=== PATIENT | male | born 1985 | race African-American/Black ===

== ENCOUNTER 2017-02-26 17:59 | Emergency (ER) | payer SELFPAY ==
--- NOTE | 2017-02-26 18:29 | ER Document Report ---
ED Medical Screen (RME) - General TRAVEL OUTSIDE OF THE [place] IN LAST 30 DAYS: No - General Chief Complaint: Fainting Stated Complaint: HEADACHE, BACK PAIN Time Seen by Provider: 02/26/17 18:11 Notes: Patient is a 31 year old male presenitng to the emergency department for possible syncope, headache, and back pain. Patient states he has hypertension because his girlfriend checked his blood pressure. Patient states he does not take medication for hypertension. Patient states he was going to the grocery store when he passed out on his way to the store. Patient states he was down on the ground for only 2 minutes or less. Patient states no one saw him and he did not have any pain when he came to. Patient states he has never passed out like that in the past. Patient states he also may have gotten too hot today which could be why he passed out. Patient believes his chronic back pain and headaches are what caused him to pass out. Patient denies any chest pain or difficulty breathing. Patient states he did have some wheezing yesterday but he used a humidifier which helped some. Patient denies any numbness or tingling. ( BREANNE ADEN) - Related Data Allergies/Adverse Reactions: seafood Allergy (Severe, Uncoded 02/26/17 18:05) tongue swelling, hives Past Medical History - Social History Chew tobacco use (# tins/day): No Frequency of alcohol use: None Drug Abuse: None Pulmonary Medical History: Reports: Hx Asthma Renal/ Medical History: Denies: Hx Peritoneal Dialysis Surgical Hx: Negative - Immunizations Immunizations up to date: Yes Hx Diphtheria, Pertussis, Tetanus Vaccination: Yes - 2014 History of Influenza Vaccine for 02/2017 - 07/2017 Season: Yes Influenza Administration Date for 02/2017 - 07/2017 Season: 11/19/16 Physical Exam - Vital signs Vitals: Temp Pulse Resp BP Pulse Ox 98.8 F 92 16 135/72 H 99 02/26/17 18:05 02/26/17 18:05 02/26/17 18:05 02/26/17 18:05 02/26/17 18:05 - Notes Notes: GENERAL: Alert, interacts well. No acute distress. HEAD: Normocephalic, atraumatic. LUNGS: Clear to auscultation bilaterally, no wheezes, rales, or rhonchi. No respiratory distress. HEART: Regular rate and rhythm. No murmurs, gallops, or rubs. NEUROLOGICAL: Alert and oriented x3. Normal speech. (BREANNE ADEN) - Vital Signs Vital signs: Temp Pulse Resp BP Pulse Ox 98.8 F 92 16 135/72 H 99 02/26/17 18:05 02/26/17 18:05 02/26/17 18:05 02/26/17 18:05 02/26/17 18:05 Scribe Documentation - Scribe Written by Scribe:: Breanne Aden, Jordyn 02/26/17 18:30 acting as scribe for :: Yasmani
[2017-02-26 18:45] LABS: ABSOLUTE EOSINOPHILS # (AUTO) 0.1 10^3/uL (0.0-0.6); ABSOLUTE LYMPHOCYTES (AUTO) 1.1 10^3/uL (0.5-4.7); ABSOLUTE MONOCYTES (AUTO) 0.8 10^3/uL (0.1-1.4); BASOPHILS % (AUTO) 0.7 % (0-2); HEMATOCRIT 46.1 % (37.9-51.0); HEMOGLOBIN 15.7 g/dL (13.5-17.0); LYMPHOCYTES % (AUTO) 15.3 % (13-45); MEAN CORPUSCULAR VOLUME 88 fl (80-97); MONOCYTES % (AUTO) 11.8 % (3-13); RED BLOOD COUNT 5.22 10^6/uL (4.35-5.55); RED CELL DISTRIBUTION WIDTH 12.5 % (11.5-14.0); SEGMENTED NEUTROPHILS % (AUTO) 71.2 % (42-78)
[2017-02-26 18:59] LABS: ALANINE AMINOTRANSFERASE 26 U/L (21-72); ALBUMIN 4.8 g/dL (3.5-5.0); ALKALINE PHOSPHATASE 69 U/L (38-126); ANION GAP 14 (5-19); ASPARTATE AMINO TRANSFERASE 18 U/L (17-59); BILIRUBIN,DIRECT 0.5 mg/dL (0.0-0.4); BILIRUBIN,TOTAL 1.8 mg/dL (0.2-1.3); BLOOD UREA NITROGEN 11 mg/dL (7-20); CALCIUM 10.6 mg/dL (8.4-10.2); CARBON DIOXIDE 27 mmol/L (22-30); CHLORIDE 102 mmol/L (98-107); CREATININE RESULT 0.95 mg/dL (0.52-1.25); GLUCOSE 56 mg/dL (75-110); POTASSIUM 4.3 mmol/L (3.6-5.0); SODIUM 142.8 mmol/L (137-145); TOTAL PROTEIN 8.3 g/dL (6.3-8.2)
--- NOTE | 2017-02-26 19:57 | ER Document Report ---
ED General - General Chief Complaint: Fainting Stated Complaint: HEADACHE, BACK PAIN Time Seen by Provider: 02/26/17 18:11 Notes: Patient is a 31-year-old male who comes emergency department with chief complaint of a syncopal episode and generally not feeling well. He states he has had headaches, he has had pains in his back, his significant other checked his blood pressure and found it was high, he states his biggest concern is that he passed out earlier and he never has passed out before. Patient states he was walking when the episode happened, he states he feels like he blacked out and went down to the ground, he denies hitting his head or having a headache immediately afterwards. Patient takes no daily medications, denies any surgeries, denies any past medical history other than asthma as a child. When asked he admits that he really has not eaten anything today or yesterday but he did have a DrJalen Guillory earlier. TRAVEL OUTSIDE OF THE [place] IN LAST 30 DAYS: No - Related Data Allergies/Adverse Reactions: seafood Allergy (Severe, Uncoded 02/26/17 18:05) tongue swelling, hives Past Medical History - General Information source: Patient - Social History Smoking Status: Current Every Day Smoker Chew tobacco use (# tins/day): No Frequency of alcohol use: None Drug Abuse: None Lives with: Family Family History: Reviewed & Not Pertinent Pulmonary Medical History: Reports: Hx Asthma Renal/ Medical History: Denies: Hx Peritoneal Dialysis Surgical Hx: Negative - Immunizations Immunizations up to date: Yes Hx Diphtheria, Pertussis, Tetanus Vaccination: Yes - 2014 Review of Systems - Review of Systems Constitutional: See HPI EENT: No symptoms reported Cardiovascular: No symptoms reported Respiratory: No symptoms reported Gastrointestinal: No symptoms reported Genitourinary: No symptoms reported Male Genitourinary: No symptoms reported Musculoskeletal: No symptoms reported Skin: No symptoms reported Hematologic/Lymphatic: No symptoms reported Neurological/Psychological: See HPI Physical Exam - Vital signs Vitals: Temp Pulse Resp BP Pulse Ox 98.8 F 92 16 135/72 H 99 02/26/17 18:05 02/26/17 18:05 02/26/17 18:05 02/26/17 18:05 02/26/17 18:05 Interpretation: Normal - General General appearance: Appears well, Alert In distress: None - HEENT Head: Normocephalic, Atraumatic Eyes: Normal Conjunctiva: Normal Extraocular movements intact: Yes Eyelashes: Normal Pupils: PERRL Nasal: Normal Mouth/Lips: Normal Mucous membranes: Normal Pharynx: Normal Neck: Normal - Respiratory Respiratory status: No respiratory distress Chest status: Nontender Breath sounds: Normal Chest palpation: Normal - Cardiovascular Rhythm: Regular Heart sounds: Normal auscultation Murmur: No - Abdominal Inspection: Normal Distension: No distension Bowel sounds: Normal Tenderness: Nontender. No: Tender, Guarding Organomegaly: No organomegaly - Back Back: Normal, Nontender - Extremities General upper extremity: Normal inspection, Nontender, Normal color, Normal ROM , Normal temperature General lower extremity: Normal inspection, Nontender, Normal color, Normal ROM , Normal temperature, Normal weight bearing. 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 Does appear to have some J- point elevation in a patient who is lean and muscular. CBC unremarkable, CMP shows minimally elevated bilirubin, shows significant hypoglycemia at 56. D- dimer ordered in triage reviewed and negative. After patient given food he has no complaints. He admits that he has not eaten in almost 2 days because he has been "too busy". Discussed the importance of good nourishment and hydration. Discussed primary care follow-up and return precautions. Patient states satisfaction and agreement. - Vital Signs Vital signs: Temp Pulse Resp BP Pulse Ox 98.1 F 92 22 H 117/74 100 02/26/17 21:01 02/26/17 18:05 02/26/17 21:01 02/26/17 21:01 02/26/17 21:01 - Laboratory Result Diagrams: 02/26/17 18:40 02/26/17 18:40 Laboratory results interpreted by me: 02/26/17 02/26/17 18:40 21:25 Glucose 56 L POC Glucose 122 H Calcium 10.6 H Total Bilirubin 1.8 H Direct Bilirubin 0.5 H Total Protein 8.3 H Discharge - Discharge Clinical Impression: Hypoglycemia Syncope Qualifiers: Syncope type: unspecified Qualified Code(s): R55 - Syncope and collapse Condition: Stable Disposition: HOME, SELF-CARE Additional Instructions: Your examination and workup shows hyperglycemia (low blood sugar), this is most likely the cause of your passing out earlier. Please hydrate better and eat regular meals to avoid this. Follow-up with primary care. Return to the emergency department for any concerning symptoms, see additional instructions below. Syncopal Episode Syncope (fainting or near-fainting) can occur from many different health problems. Or it can be a simple fainting spell requiring no treatment. It is safe for you to go home, but further evaluation will likely be necessary. Your work-up may include tests for internal bleeding, heart disease, medication problems, or near-strokes. Tests are not always required, however, depending on the nature of your problem. The warning signs of an impending faint include: dizziness, lightheadedness , nausea, hot flashes, tingling, and weakness. If this happens, lay down and put your feet up, then wait until all of these symptoms have passed before standing up again. If these episodes become recurrent, or if you develop chest pain, heart palpitations, mental confusion, blurred vision, or headache, then you should call the physician, or go to the emergency room.
[2017-02-26 21:59] VITALS: BP 117/74
--- NOTE | 2017-02-27 06:23 | EKG REPORT ---
SEVERITY:- NORMAL ECG - SINUS RHYTHM ST ELEV, PROBABLE NORMAL EARLY REPOL PATTERN : Confirmed by: Mildred Dean MD 27-Feb-2017 06:22:21
== END 2017-02-26 21:59 | disposition home or self-care (01) ==
LOC: ER 17:59
DX: E16.2 Hypoglycemia, unspecified (principal); R55 Syncope and collapse; R51 Headache; M54.9 Dorsalgia, unspecified; F17.200 Nicotine dependence, unspecified, uncomplicated; Z91.013 Allergy to seafood
CPT/HCPCS: 36415; 80053; 82962; 85025; 85379; 93005; 93010; 99284

== ENCOUNTER 2017-12-21 08:22 | Emergency (ER) | payer SELFPAY ==
[2017-12-21 08:28] VITALS: BP 99/71
--- NOTE | 2017-12-21 09:26 | ER Document Report ---
HPI - HPI Pain Level: 4 Notes: Patient is a 32-year-old male with a history of asthma who presents to the ED complaining of nasal congestion/discharge, postnasal drip, occasional dry nonproductive cough and right eye itching 1 day. Patient states that he is not allowed to be at work if he is sick so he wanted to get evaluated. Patient states that he is eating and drinking without any difficulties. He is urinating normally and having normal bowel movements. Patient states that he is auditory without any difficulties as well. Patient states that this is not an asthma flareup for him. He has no other concerns or complaints at this time. Patient states that his kids at home do have an upper respiratory illness and pinkeye. Denies any headache, fever, neck pain, sore throat, chest pain, palpitations, syncope, shortness of breath, wheeze, dyspnea, abdominal pain, nausea/vomiting/diarrhea, urinary retention, dysuria, hematuria, or rash. - ROS Systems Reviewed and Negative: Yes All other systems reviewed and negative Past Medical History - Social History Smoking Status: Unknown if Ever Smoked Family History: Reviewed & Not Pertinent Pulmonary Medical History: Reports: Hx Asthma Renal/ Medical History: Denies: Hx Peritoneal Dialysis - Immunizations Immunizations up to date: Yes Hx Diphtheria, Pertussis, Tetanus Vaccination: Yes - 2014 [facility] Provider Document - CONSTITUTIONAL Agree With Documented VS: Yes Notes: PHYSICAL EXAMINATION: GENERAL: Well-appearing, well-nourished and in no acute distress. A&Ox4. Answers questions appropriately. Moves comfortably w/o notable distress HEAD: Atraumatic, normocephalic. EYES: Pupils equal round and reactive to light, extraocular movements intact, sclera anicteric, conjunctiva are normal. No discharge or redness. ENT: EAC clear b/l. TM's intact b/l without erythema, fluid, or perforation. Nares patent and with clear discharge. oropharynx no erythema without exudates. No tonsilar hypertrophy without erythema or exudate. No palatine shift. Uvula midline. No tongue protrusion. No drooling, hoarseness, or airway compromise. Moist mucous membranes. No sinus tenderness. NECK: Normal range of motion, supple without lymphadenopathy. No rigidity/ meningismus. LUNGS: Breath sounds clear to auscultation bilaterally and equal. No wheezes rales or rhonchi. No retractions HEART: Regular rate and rhythm without murmurs, rubs, gallops. NEUROLOGICAL: Normal speech, normal gait. PSYCH: Normal mood, normal affect. SKIN: Warm, Dry, normal turgor, no rashes or lesions noted. - INFECTION CONTROL TRAVEL OUTSIDE OF THE [place] IN LAST 30 DAYS: No Course - Re-evaluation Re-evalutation: 12/21/17 09:24 Patient is an afebrile, well-hydrated, 32-year-old male who presents to the ED with acute URI, suspect viral. Vitals are stable. PE is otherwise unremarkable. No labs or imaging warranted at this time based on H&P. Patient has no significant cardiopulmonary or immunocompromised medical conditions. Patient's lungs are clear to auscultation bilaterally without tachycardia, hypoxia, or tachypnea. Patient is tolerating p.o. without any difficulties. Low suspicion for any meningitis, sepsis, peritonsillar/pharyngeal abscess, respiratory compromise, severe dehydration, or other emergent systemic condition at this time. Patient is aware this condition can change from initial presentation and he needs to monitor symptoms closely. Conservative measures otherwise for symptoms. Recheck with your PCM in 3-5 days. Return to the ED with any worsening/concerning symptoms otherwise as reviewed in discharge. Patient is in agreement. Work note given. - Vital Signs Vital signs: Temp Pulse Resp BP Pulse Ox 97.8 F 71 16 99/71 L 100 12/21/17 08:26 12/21/17 08:26 12/21/17 08:26 12/21/17 08:26 12/21/17 08:26 Discharge - Discharge Clinical Impression: Acute URI Condition: Stable Disposition: HOME, SELF-CARE Instructions: Upper Respiratory Illness ([facility]) Additional Instructions: Maintain adequate fluid intake Take meds as directed tylenol/ibuprofen as needed over the counter cold medication as needed for symptoms Humidified air may help Wash your hands regularly Wear a mask when coughing F/u: with your PCM in 3-5 days for a recheck Return to the ED with any fever, worsening pain, chest pain, palpitations, syncope, worsening RANDOLPH, neck pain/stiffness, shortness of breath, wheezing, drooling, trouble swallowing/breathing, abdominal pain, n/v/d, rash, or worsening/concerning symptoms otherwise. Forms: Return to Work Referrals: [facility] [Provider Group] - Follow up as needed [facility] [Provider Group] - Follow up as needed
== END 2017-12-21 09:30 | disposition home or self-care (01) ==
LOC: ER 08:22
DX: J06.9 Acute upper respiratory infection, unspecified (principal); J45.909 Unspecified asthma, uncomplicated; R09.81 Nasal congestion; R09.82 Postnasal drip; R05 Cough; L29.9 Pruritus, unspecified
CPT/HCPCS: 99283

== ENCOUNTER 2018-02-13 01:17 | Emergency (ER) | payer SELFPAY ==
[2018-02-13 01:25] VITALS: BP 111/69
[2018-02-13] MEDS ORDERED: METHOCARBAMOL 750 MG TABLET PO ONE (02:19)
[2018-02-13] MEDS ORDERED: NAPROXEN 250 MG TABLET PO ONE (02:19)
[2018-02-13 03:06] LABS: APPEARANCE,URINE SLIGHTLY-CLOUDY; BILIRUBIN,URINE NEGATIVE (NEGATIVE); COLOR,URINE YELLOW; GLUCOSE, URINE NEGATIVE (NEGATIVE); KETONES,URINE NEGATIVE (NEGATIVE); LEUKOCYTE ESTERASE,URINE NEGATIVE (NEGATIVE); NITRITE,URINE NEGATIVE (NEGATIVE); PROTEIN,URINE NEGATIVE (NEGATIVE); URINE SPECIFIC GRAVITY 1.025
--- NOTE | 2018-02-13 03:12 | ER Document Report ---
ED General - General Chief Complaint: Back Pain Stated Complaint: BLOOD PRESSURE ISSUE/BACK PAIN Time Seen by Provider: 02/13/18 01:55 Notes: Patient is a 32-year-old male that presents to the emergency department for chief complaint of back pain. Patient states that he started having back pain over the last 2-3 days and seem to be worse, he does suffer from chronic low back pain, but he thinks he may have strained it from lifting over the last few days. He states he did take 1 of his mother's Percocets, which did help his pain yesterday for several hours, but the pain returned today. He also states today he had a headache after 1 of his friends was over, and he smelled a strong cologne, that he walked outside, and it did resolve nearly completely, he states he has a mild headache at this time. He states he has had headaches in the past, and this is not the worse when he is had. Denies any numbness, tingling or weakness, or blurred vision at this time. Denies having any nausea or vomiting. He currently rates his low back pain as a 4 out of 10, as an aching sensation, worse with movements twisting, bending and walking. Denies any urinary retention, stool incontinence, saddle anesthesia or paresthesias Past Medical History: Chronic low back pain, asthma Past Surgical History: Denies major surgical history Social History: Admits to occasional cigarette smoking, denies alcohol or drug use Family History: Reviewed and noncontributory for presenting illness Allergies: Reviewed, see documented allergy list. REVIEW OF SYSTEMS: Unless otherwise stated in this report the patient's positive and negative responses for review of systems for constitutional, eyes, ENT, cardiovascular, respiratory, gastrointestinal, neurological, genitourinary, musculoskeletal, and integumentary systems and related systems to the presenting problem are either as stated in the HPI or were not pertinent or were negative for the symptoms and/or complaints related to the presenting medical problem. PHYSICAL EXAMINATION: Vital signs reviewed, nursing noted reviewed. GENERAL: Well-appearing, well-nourished and in no acute distress. HEAD: Atraumatic, normocephalic. EYES: Eyes appear normal, extraocular movements intact, sclera anicteric, conjunctiva are normal. ENT: nares patent, oropharynx clear without exudates. Moist mucous membranes. NECK: Normal range of motion, supple without lymphadenopathy LUNGS: Breath sounds clear to auscultation bilaterally and equal. No wheezes rales or rhonchi. HEART: Regular rate and rhythm without murmurs ABDOMEN: Soft, nontender, normoactive bowel sounds. No rebound, guarding, or rigidity. No masses appreciated. EXTREMITIES: Nontender, good range of motion, no pitting or edema. Back: Bilateral paraspinal tenderness of the lumbar spine, worse on the right compared to the left, no thoracic spine tenderness, no midline tenderness of the entire spine. Range of motion of the thoracic and lumbar spine is within normal limits NEUROLOGICAL: No focal neurological deficits. Moves all extremities spontaneously Motor and sensory grossly intact on exam. PSYCH: Normal mood, normal affect. SKIN: Warm, Dry, normal turgor, no rashes or lesions noted on exposed skin TRAVEL OUTSIDE OF THE [place] IN LAST 30 DAYS: No - Related Data Allergies/Adverse Reactions: seafood Allergy (Severe, Uncoded 12/21/17 08:23) tongue swelling, hives Past Medical History - Social History Smoking Status: Unknown if Ever Smoked Chew tobacco use (# tins/day): No Frequency of alcohol use: None Drug Abuse: None Family History: Reviewed & Not Pertinent Patient has suicidal ideation: No Patient has homicidal ideation: No Pulmonary Medical History: Reports: Hx Asthma Renal/ Medical History: Denies: Hx Peritoneal Dialysis - Immunizations Immunizations up to date: Yes Hx Diphtheria, Pertussis, Tetanus Vaccination: Yes - 2014 Physical Exam - Vital signs Vitals: Temp Pulse BP Pulse Ox 98.0 F 73 111/69 98 02/13/18 01:23 02/13/18 01:23 02/13/18 01:23 02/13/18 01:23 Course - Re-evaluation Re-evalutation: Patient seen and examined vital signs reviewed. Laboratory data and imaging were ordered as appropriate for the patient's presenting symptoms and complaint, with consideration of any critical or life threatening conditions that may be associated with their obtained history and exam as noted above. Patient was treated with Robaxin, and naproxen, he was offered IM injection of Toradol, but declined this at this time. Did order urinalysis, as the patient was worried he may have a kidney stone, although he had no history of kidney stones, denied dysuria and hematuria Results were reviewed when available and demonstrated unremarkable urinalysis The patient was re-evaluated and was improved Evaluation was most consistent with low back pain Results were discussed with the patient at this point, after careful consideration I feel that that patient can be discharged from the emergency department, the patient was educated treatments and reasons to return to the emergency department based on their presumed diagnosis as noted above, they were advised to followup with a primary care physician in 2-3 days. Patient was agreeable to plan of care. *Note is created using voice recognition software and may contain spelling, syntax or grammatical errors. Laboratory 02/13/18 02:43 Urine Color YELLOW Urine Appearance SLIGHTLY-CLOUDY Urine pH 6.0 Ur Specific Sandy 1.025 Urine Protein NEGATIVE Urine Glucose (UA) NEGATIVE Urine Ketones NEGATIVE Urine Blood NEGATIVE Urine Nitrite NEGATIVE Urine Bilirubin NEGATIVE Urine Urobilinogen 4.0 H Ur Leukocyte Esterase NEGATIVE Urine WBC (Auto) 2 Urine RBC (Auto) 2 Squamous Epi Cells Auto <1 Urine Mucus (Auto) FEW Urine Ascorbic Acid NEGATIVE - Vital Signs Vital signs: Temp Pulse Resp BP Pulse Ox 98.0 F 73 111/69 98 02/13/18 01:23 02/13/18 01:23 02/13/18 01:23 02/13/18 01:23 - Laboratory Laboratory results interpreted by me: 02/13/18 02:43 Urine Urobilinogen 4.0 H Discharge - Discharge Clinical Impression: Low back pain Qualifiers: Chronicity: acute Back pain laterality: bilateral Sciatica presence: without sciatica Qualified Code(s): M54.5 - Low back pain Condition: Stable Disposition: HOME, SELF-CARE Instructions: Low Back Pain ([facility]) Additional Instructions: Please return to the emergency department if you have any worsening, or concern of your symptoms. Please return to the emergency department if you develop chest pain, difficulty breathing, severe abdominal pain, or ongoing vomiting. Please follow-up with your primary care physician in 2-3 days and any other recommended physicians. If prescribed, take all medications as directed. If you have any questions or concerns do not hesitate to return the emergency department for evaluation. Prescriptions: Methocarbamol [Robaxin 500 mg Tablet] 500 mg PO TID PRN #15 tablet PRN Reason: back spasm Naproxen 500 mg PO BID PRN #30 tablet PRN Reason: back pain Referrals: MARIAM VILLA MD [COMMUNITY BASED STAFF] - Follow up in 3-5 days (primary care )
== END 2018-02-13 03:36 | disposition home or self-care (01) ==
LOC: ER 01:17
DX: M54.5 Low back pain (principal); R51 Headache; J45.909 Unspecified asthma, uncomplicated; F17.210 Nicotine dependence, cigarettes, uncomplicated; Z91.013 Allergy to seafood
CPT/HCPCS: 99283; 81001; J3490

== ENCOUNTER 2018-09-12 18:26 | Emergency (ER) | payer SELFPAY ==
--- NOTE | 2018-09-12 19:38 | RADIOLOGY REPORT (SQ) ---
EXAM DESCRIPTION: ANKLE RIGHT COMPLETE COMPLETED DATE/TIME: 09/12/2018 7:15 pm REASON FOR STUDY: fall injury COMPARISON: None. EXAM PARAMETERS: NUMBER OF VIEWS: Three views. TECHNIQUE: AP, lateral and oblique radiographic images acquired of the right ankle. LIMITATIONS: None. FINDINGS: MINERALIZATION: Normal. BONES: No acute fracture or dislocation. No worrisome bone lesions. JOINTS: No effusion. SOFT TISSUES: No significant soft tissue swelling. No radiopaque foreign body. OTHER: No other significant finding. IMPRESSION: NO FRACTURE. TECHNICAL DOCUMENTATION: JOB ID: [id number] [place]-72 2010 [employer]- All Rights Reserved Reading location - IP/workstation name: [email or web address]
--- NOTE | 2018-09-12 19:40 | RADIOLOGY REPORT (SQ) ---
EXAM DESCRIPTION: FOOT RIGHT COMPLETE COMPLETED DATE/TIME: 09/12/2018 7:15 pm REASON FOR STUDY: fall injury COMPARISON: None. EXAM PARAMETERS: NUMBER OF VIEWS: Three views. TECHNIQUE: AP, lateral and oblique radiographic images acquired of the right foot. LIMITATIONS: None. FINDINGS: MINERALIZATION: Normal. BONES: No acute fracture or dislocation. No worrisome bone lesions. JOINTS: No effusion. SOFT TISSUES: No significant soft tissue swelling. No radiopaque foreign body. OTHER: No other significant finding. IMPRESSION: NO FRACTURE. TECHNICAL DOCUMENTATION: JOB ID: [id number] [place]-72 2010 [employer]- All Rights Reserved Reading location - IP/workstation name: [email or web address].
--- NOTE | 2018-09-12 20:59 | ER Document Report ---
ED General - General Chief Complaint: Foot Injury Stated Complaint: RIGHT FOOT PAIN Time Seen by Provider: 09/12/18 20:50 Mode of Arrival: Ambulatory Information source: Patient TRAVEL OUTSIDE OF THE [place] IN LAST 30 DAYS: No - HPI Patient complains to provider of: Right foot and ankle injury Onset: Other - 330's afternoon Onset/Duration: Sudden Severity: Severe - Patient rates pain as 100 out of 5 Associated symptoms: None Exacerbated by: Movement, Walking, Other - Weightbearing Relieved by: Denies Similar symptoms previously: No Recently seen / treated by doctor: No Notes: 32-year-old -[place]ian male coming in today with right foot and ankle injury. He was stepping out of his mom's trailer and missed his footing on the steps and twisted his right foot and ankle when he stepped down. Hurts to bear weight. Does not have any previous history. No other injuries. - Related Data Allergies/Adverse Reactions: seafood Allergy (Severe, Uncoded 12/21/17 08:23) tongue swelling, hives Past Medical History - General Information source: Patient - Social History Smoking Status: Smoker,Current Status Unk Family History: Reviewed & Not Pertinent Pulmonary Medical History: Reports: Hx Asthma Renal/ Medical History: Denies: Hx Peritoneal Dialysis - Immunizations Immunizations up to date: Yes Hx Diphtheria, Pertussis, Tetanus Vaccination: Yes - 2014 Review of Systems - Review of Systems Notes: Constitutional: No fevers. No chills. EENT: No eye redness. No eye pain. No ear pain. No sore throat. Cardiovascular: No chest pain. No palpitations. Respiratory: No cough. No shortness of breath. No respiratory distress. Gastrointestinal: No abdominal pain. No nausea, vomiting, or diarrhea. Genitourinary: Atraumatic. No lesions. No pain. No discharge. Musculoskeletal: Atraumatic. Positive for right foot and ankle pain and swelling Skin: No rash or lesions. Lymphatic: No swollen lymph nodes. Neurologic: No headache. No syncope. Psychiatric: No suicidal or homicidal ideation. Physical Exam - Vital signs Vitals: Temp Pulse Resp BP Pulse Ox 98.9 F 71 16 124/71 93 09/12/18 18:31 09/12/18 18:31 09/12/18 18:31 09/12/18 18:31 04/24/19 18:31 - Notes Notes: General: Well-developed, well-nourished. In no acute distress. Non-toxic appearing. Cardiac: Well-perfused. Regular rate and rhythm. No murmurs, rubs, or gallops. Pulmonary: No respiratory distress. No cyanosis. Bilateral lung fiels are clear to auscultation. Abdominal: Non-distended. Non-rigid. Bowels sounds are present in all four quadrants. No guarding or rebound. HEENT: Head is atraumatic. Conjunctivae not reddened. No tearing. PERRL. EOMI. O rbits atraumatic. No periorbital swelling or erythema. Oropharynx is without erythema, swelling, or exudates. Neck: Supple. No adenopathy. No meningismus. Dermatologic: Warm with good turgor. No rash. Atraumatic. Chest: Atraumatic. No chest wall tenderness to palpation. Musculoskeletal: Soft tissue swelling right ankle and right lateral foot. No fifth metatarsal tenderness. No deformity. Distal neurovascular exam is intact. Normal range of motion Genitourinary: Examination deferred Neurologic: No gross neurologic deficits. Psychiatric: Normal mood. Course - Re-evaluation Re-evalutation: 09/12/18 20:56 X-rays negative. Patient is requesting Jaya wrap but not crutches. - Vital Signs Vital signs: Temp Pulse Resp BP Pulse Ox 98.9 F 71 16 124/71 93 09/12/18 18:31 09/12/18 18:31 09/12/18 18:31 09/12/18 18:31 09/12/18 18:31 Discharge - Discharge Clinical Impression: Ankle sprain Qualifiers: Encounter type: initial encounter Involved ligament of ankle: unspecified ligament Laterality: right Qualified Code(s): S93.401A - Sprain of unspecified ligament of right ankle, initial encounter Condition: Good Disposition: HOME, SELF-CARE Instructions: Ice Packs ([facility]), Sprained Ankle ([facility]) Referrals: JAXSON GARCIA MD [ACTIVE STAFF] - Follow up in 1 week
[2018-09-12 21:07] VITALS: BP 106/64
== END 2018-09-12 21:11 | disposition home or self-care (01) ==
LOC: ER 18:26
DX: S93.401A Sprain of unspecified ligament of right ankle, initial encounter (principal); X50.0XXA Overexertion from strenuous movement or load, initial encounter; Y92.028 Other place in mobile home as the place of occurrence of the external cause; Z91.013 Allergy to seafood
CPT/HCPCS: 99283

== ENCOUNTER 2018-11-25 06:06 | Emergency (ER) | payer SELFPAY ==
[2018-11-25 06:48] VITALS: BP 121/68
== END 2018-11-25 08:50 | disposition left against medical advice (07) ==
LOC: ER 06:06
DX: Z53.21 Procedure and treatment not carried out due to patient leaving prior to being seen by health care provider (principal); R53.1 Weakness

== ENCOUNTER 2018-12-07 17:41 | Emergency (ER) | payer SELFPAY ==
[2018-12-07 17:46] VITALS: BP 105/54
== END 2018-12-07 20:44 | disposition left against medical advice (07) ==
LOC: ER 17:41
DX: Z53.21 Procedure and treatment not carried out due to patient leaving prior to being seen by health care provider (principal)

== ENCOUNTER 2019-01-28 17:56 | Emergency (ER) | payer SELFPAY ==
--- NOTE | 2019-01-28 18:42 | ER Document Report ---
ED Medical Screen (RME) - General Chief Complaint: Blood in Catheter Stated Complaint: BLOOD IN URINE Time Seen by Provider: 01/28/19 18:38 Mode of Arrival: Ambulatory Information source: Patient Notes: 33-year-old male presented to ED for complaint of blood in his stools 2 days ago and blood in his urine yesterday. He states think of blood in his stool is from any red chips.. He denies any trouble going to the bathroom and does not have any hemorrhoids. He states he does do heavy lifting at work. He does have some low back pain is having pain with urination or stools. Patient is alert and oriented respirations regular and unlabored speaking in full sentences walks with even steady gait. I have greeted and performed a rapid initial assessment of this patient. A comprehensive ED assessment and evaluation of the patient, analysis of test results and completion of medical decision making process will be conducted by an additional ED providers. TRAVEL OUTSIDE OF THE [place] IN LAST 30 DAYS: No - Related Data Allergies/Adverse Reactions: seafood Allergy (Severe, Uncoded 01/28/19 17:57) tongue swelling, hives Past Medical History Pulmonary Medical History: Reports: Hx Asthma Renal/ Medical History: Denies: Hx Peritoneal Dialysis - Immunizations Immunizations up to date: Yes Hx Diphtheria, Pertussis, Tetanus Vaccination: Yes - 2014 History of Influenza Vaccine for 02/2017 - 07/2017 Season: Yes Influenza Administration Date for 02/2017 - 07/2017 Season: 11/19/16 Physical Exam - Vital signs Vitals: Temp Pulse Resp BP Pulse Ox 98.7 F 99 16 114/65 98 01/28/19 18:03 01/28/19 18:03 01/28/19 18:03 01/28/19 18:03 01/28/19 18:03 Course - Vital Signs Vital signs: Temp Pulse Resp BP Pulse Ox 98.7 F 99 16 114/65 98 01/28/19 18:03 01/28/19 18:03 01/28/19 18:03 01/28/19 18:03 01/28/19 18:03
[2019-01-28 19:56] LABS: HEMATOCRIT 43.2 % (37.9-51.0); HEMOGLOBIN 14.6 g/dL (13.5-17.0); MEAN CORPUSCULAR HEMOGLOBIN 29.8 pg (27.0-33.4); MEAN CORPUSCULAR HGB CONC 33.8 g/dL (32.0-36.0); MEAN CORPUSCULAR VOLUME 88 fl (80-97); PLATELET COUNT 256 10^3/uL (150-450); RED BLOOD COUNT 4.89 10^6/uL (4.35-5.55); RED CELL DISTRIBUTION WIDTH 12.6 % (11.5-14.0); WHITE BLOOD COUNT 12.2 10^3/uL (4.0-10.5)
[2019-01-28 19:59] LABS: APPEARANCE,URINE SLIGHTLY-CLOUDY; BILIRUBIN,URINE NEGATIVE (NEGATIVE); COLOR,URINE DARK YELLOW; GLUCOSE, URINE NEGATIVE (NEGATIVE); KETONES,URINE TRACE mg/dL (NEGATIVE); LEUKOCYTE ESTERASE,URINE NEGATIVE (NEGATIVE); NITRITE,URINE NEGATIVE (NEGATIVE); PROTEIN,URINE 100 mg/dL (NEGATIVE); URINE SPECIFIC GRAVITY 1.028
[2019-01-28 20:13] LABS: ABSOLUTE LYMPHOCYTES# (MANUAL) 1.3 10^3/uL (0.5-4.7); ABSOLUTE MONOCYTES # (MANUAL) 0.2 10^3/uL (0.1-1.4); BAND NEUTROPHILS % (MANUAL) 1 % (3-5); BASOPHILS % (MANUAL) 0 % (0-2); EOSINOPHILS % (MANUAL) 0 % (0-6); LYMPHOCYTES % (MANUAL) 11 % (13-45); METAMYELOCYTES % (MANUAL) 1 % (0); MONOCYTES % (MANUAL) 2 % (3-13); SEGMENTED NEUTROPHILS % (MAN) 85 % (42-78); TOTAL CELLS COUNTED 100
[2019-01-28 20:14] LABS: PLATELET COMMENT ADEQUATE; RBC MORPHOLOGY COMMENT NORMO-CYTIC/CHROMIC
[2019-01-28 20:15] LABS: ALBUMIN 4.7 g/dL (3.5-5.0); ALKALINE PHOSPHATASE 90 U/L (38-126); ANION GAP 9 (5-19); ASPARTATE AMINO TRANSFERASE 18 U/L (17-59); BILIRUBIN,DIRECT 0.1 mg/dL (0.0-0.4); BILIRUBIN,TOTAL 1.3 mg/dL (0.2-1.3); BLOOD UREA NITROGEN 9 mg/dL (7-20); CALCIUM 10.7 mg/dL (8.4-10.2); CARBON DIOXIDE 28 mmol/L (22-30); CHLORIDE 101 mmol/L (98-107); GLUCOSE 94 mg/dL (75-110); POTASSIUM 4.8 mmol/L (3.6-5.0)
--- NOTE | 2019-01-28 21:32 | RADIOLOGY REPORT (SQ) ---
EXAM DESCRIPTION: US RETROPERITONEUM COMPLETED DATE/TME: 01/28/2019 18:43 CLINICAL HISTORY: 33 years, Male, bilateral flank pain COMPARISON: None. TECHNIQUE: Axial 2-D grayscale images of the retroperitoneum were performed. Doppler was utilized. LIMITATIONS: None. FINDINGS: Right kidney measures 9.4 cm in length. Left kidney measures 9.9 cm in length. Both kidneys demonstrate normal echogenicity and Doppler flow. There is no hydronephrosis. The bladder was not visualized. IMPRESSION: Normal sonographic appearance of the kidneys. copyright 2010 [employer] [employer]- All Rights Reserved
--- NOTE | 2019-01-29 01:03 | ER Document Report ---
Entered by GINA MONTAGUE SCRIBE 01/29/19 0033 Acting as scribe for:PEPITO BRONSON MD ED GI/ - General Chief Complaint: Blood in Catheter Stated Complaint: BLOOD IN URINE Time Seen by Provider: 01/28/19 18:38 Mode of Arrival: Ambulatory Information source: Patient Notes: Patient is a 33 year old male that presents to the emergency department today with complaints of hematuria and blood in his stool. Patient reports that he thinks it could have been caused by "eating hot chips". Patient states he knows that he is dehydrated, stating he never drinks water. Patient states he always drinks soda or juice. TRAVEL OUTSIDE OF THE [place] IN LAST 30 DAYS: No - Related Data Allergies/Adverse Reactions: seafood Allergy (Severe, Uncoded 01/28/19 17:57) tongue swelling, hives Past Medical History - General Information source: Patient - Social History Smoking Status: Current Some Day Smoker Cigarette use (# per day): Yes - social, 1 pack per 1-2 weeks Chew tobacco use (# tins/day): No Frequency of alcohol use: None Drug Abuse: None Occupation: [employer] Lives with: Family Family History: Reviewed & Not Pertinent Patient has suicidal ideation: No Patient has homicidal ideation: No Pulmonary Medical History: Reports: Hx Asthma - Immunizations Immunizations up to date: Yes Hx Diphtheria, Pertussis, Tetanus Vaccination: Yes - 2014 Review of Systems - Review of Systems Constitutional: See HPI, Other - dehydration EENT: No symptoms reported Cardiovascular: No symptoms reported Respiratory: Cough Gastrointestinal: See HPI, Other - blood in stool Genitourinary: See HPI, Hematuria Male Genitourinary: No symptoms reported Musculoskeletal: No symptoms reported Skin: No symptoms reported Hematologic/Lymphatic: No symptoms reported Neurological/Psychological: No symptoms reported -: Yes All other systems reviewed and negative Physical Exam - Vital signs Vitals: Temp Pulse Resp BP Pulse Ox 98.7 F 99 16 114/65 98 01/28/19 18:03 01/28/19 18:03 01/28/19 18:03 01/28/19 18:03 01/28/19 18:03 - Notes Notes: Physical Exam: General: Alert, appears well. HEENT: Normocephalic. Atraumatic. PERRL. Extraocular movements intact. Oropharynx clear. Neck: Supple. Non-tender. Respiratory: No respiratory distress. Patient has some rhonchi noted with his occasional cough. Cardiovascular: Regular rate and rhythm. Abdominal: Normal Inspection. Non-tender. No distension. Normal Bowel Sounds. Rectal: Anal exam does not show fissures or hemorrhoids. Digital rectal exam was unremarkable. Stool was heme-negative. Back: No gross abnormalities. Extremities: Moves all four extremities. Upper extremities: Normal inspection. Normal ROM. Lower extremities: Normal inspection. No edema. Normal ROM. Neurological: Normal cognition. AAOx4. Normal speech. Psychological: Normal affect. Normal Mood. Skin: Warm. Dry. Normal color. Course - Re-evaluation Re-evalutation: 01/29/19 01:11 Stool Hemoccult was negative. A concentrated urine specimen had 7 RBCs but was dipstick negative for blood. Renal ultrasound was normal with no hydronephrosis or hydroureter. Patient's WBC count was slightly elevated with a shift. - Vital Signs Vital signs: Temp Pulse Resp BP Pulse Ox 98.2 F 88 17 152/73 H 99 01/29/19 01:08 01/29/19 01:08 01/29/19 01:08 01/29/19 01:08 01/29/19 01:08 - Laboratory Result Diagrams: 01/28/19 19:38 01/28/19 19:38 Laboratory results interpreted by me: 01/28/19 01/28/19 01/28/19 19:38 19:38 19:38 WBC 12.2 H Seg Neuts % (Manual) 85 H Band Neutrophils % 1 L Lymphocytes % (Manual) 11 L Monocytes % (Manual) 2 L Metamyelocytes % 1 H Abs Neuts (Manual) 10.6 H Calcium 10.7 H Urine Protein 100 H Urine Ketones TRACE H Urine Urobilinogen 2.0 H Discharge - Discharge Clinical Impression: Pneumonia Qualifiers: Pneumonia type: due to unspecified organism Laterality: right Lung location: upper lobe of lung Qualified Code(s): J18.1 - Lobar pneumonia, unspecified organism Condition: Stable Disposition: HOME, SELF-CARE Additional Instructions: Pneumonia Your examination indicates that you have pneumonia. This is an infection of the lung tissue, usually caused by bacteria or a virus. Symptoms include cough, fever, shaking chills, chest pain, shortness of breath, and coughing up bloody sputum. Treatment for bacterial pneumonia includes rest, antibiotics for 10 to 14 days, increasing your clear liquid intake, a cool mist humidifier at your bedside, and fever medication. Often, a repeat chest X-ray is performed in a few weeks--even if you feel better--to ascertain whether the infection has completely resolved and no underlying lung problem is present. You should call the physician if you develop persistent vomiting, high fever that does not respond to fever medication, increasing shortness of breath, confusion, or lethargy. Also, failure to improve within two to three days is an indication for re-examination. Take medications as prescribed. Drink lots of fluids throughout the day and evening. Get plenty of rest for the next 1 to 2 days. Follow-up with a local primary care provider if not improving. RETURN TO THE EMERGENCY ROOM IF ANY NEW OR WORSENING SYMPTOMS. Prescriptions: Azithromycin [Zithromax 250 mg Tablet] 250 mg PO DAILY #4 tablet Forms: Return to Work Scribe Attestation: 01/29/19 01:13 I personally performed the services described in the documentation, reviewed and edited the documentation which was dictated to the scribe in my presence, and it accurately records my words and actions. I personally performed the services described in the documentation, reviewed and edited the documentation which was dictated to the scribe in my presence, and it accurately records my words and actions.
--- NOTE | 2019-01-29 01:56 | RADIOLOGY REPORT (SQ) ---
EXAM DESCRIPTION: XR CHEST 2 VIEWS COMPLETED DATE/TME: 01/29/2019 01:12 CLINICAL HISTORY: 33 years, Male, Cough, congestion, leukocytosis COMPARISON: None. NUMBER OF VIEWS: Two TECHNIQUE: Two views of the chest LIMITATIONS: None. FINDINGS: There are increased reticulonodular opacities along the right upper lobe. The left lung is clear. The heart is normal in size. There is no pneumothorax or pleural effusion. The bones are unremarkable. IMPRESSION: Increased reticulonodular opacities along the right upper lobe, which may be due to pneumonia. copyright 2010 [employer]- All Rights Reserved
[2019-01-29] MEDS ORDERED: AZITHROMYCIN 250 MG TABLET PO ONE (02:23)
[2019-01-29] MEDS ORDERED: LIDOCAINE 1% INJ-PF (10 MG/ML) 30 ML SDV INJ ONE (02:23)
[2019-01-29] MEDS ORDERED: CEFTRIAXONE INJ 1000 MG VIAL IM ONE (02:23)
[2019-01-29 03:06] VITALS: BP 120/66
== END 2019-01-29 03:40 | disposition home or self-care (01) ==
LOC: ER 17:56
DX: J18.1 Lobar pneumonia, unspecified organism (principal); R31.9 Hematuria, unspecified; E86.0 Dehydration; F17.210 Nicotine dependence, cigarettes, uncomplicated; Z91.013 Allergy to seafood
CPT/HCPCS: 36415; 83690; 85025; 80053; 81001; 71046; 76770; J3490; J0696; 96372; 99284